=== PATIENT | female | born 1970 | race Caucasian/White ===

== ENCOUNTER 2017-06-22 10:46 | Emergency (ER) | payer MEDICARE, OTHER ==
[~2017-06-22] VITALS: Ht 172.7 cm; Wt 68.0 kg
--- NOTE | 2017-06-22 11:26 | PHYS DOC ---
Past Medical History Past Medical History: Hypotension, Pneumonia, Other Additional Past Medical Histor: SERGIO'S DISEASE,QUADRAPLEGIA Past Surgical History: Other Additional Past Surgical Histo: NECK FUSION, MULTIPLE FLAP SURGERIES Alcohol Use: None Drug Use: Marijuana Adult General Chief Complaint Chief Complaint: OTHER COMPLAINTS HPI HPI Impression is a pleasant 47-year-old female who is a quadriplegic who at had a central line placed by interventional radiology in the early portions of April. Patient had this Port-A-Cath placed for IV therapy after surgery. She's been doing well was at a rehabilitation subsequently from last month and discharged on 13 June. It was noted at their transfer her from the [facility] to her home that the Port-A-Cath was still in place. This Port-A-Cath has been in placed supply IV antibiotics for a wound that was revisited revised by general surgery on her thigh. Patient has had no fever no chills or other symptoms and she called the general surgeon who told her to go to the hospital have the Port- A-Cath removed. She is been in our rehabilitation facility and was referred here to our ER for this Port-A-Cath removed. It was explained to the patient that we do not do the service here in the ER as its accommodated process to remove a Port-A-Cath appropriate workup for possible bacterial Examination an appropriate disposition. She is willing to be admitted to the hospital for this purpose. Review of Systems Review of Systems Constitutional: Denies fever or chills [] Eyes: Denies change in visual acuity, redness, or eye pain [] HENT: Denies nasal congestion or sore throat [] Respiratory: Denies cough or shortness of breath [] Cardiovascular: No additional information not addressed in HPI [] GI: Denies abdominal pain, nausea, vomiting, bloody stools or diarrhea [] : Denies dysuria or hematuria [] Musculoskeletal: Denies back pain or joint pain [] Integument: Denies rash or skin lesions [] Neurologic: Denies headache, focal weakness or sensory changes [] Endocrine: Denies polyuria or polydipsia [] Allergies Allergies Allergies Coded Allergies Type Severity Reaction Last Updated Verified Sulfa (Sulfonamide Antibiotics) Allergy Unknown 06/22/17 Yes ceftriaxone Allergy Unknown 06/22/17 Yes cephalexin Allergy Unknown 06/22/17 Yes piperacillin Allergy Unknown 06/22/17 Yes tazobactam Allergy Unknown 06/22/17 Yes vancomycin Allergy Unknown 06/22/17 Yes Physical Exam Physical Exam This patient's vital Signs are stable for patient. Constitutional: Well developed, well nourished, no acute distress, non-toxic appearance. [] Cardiovascular:Heart rate regular rhythm, no murmur [] Lungs & Thorax: Bilateral breath sounds clear to auscultation [] Skin: Warm, dry, no erythema, no rash. [] Has no redness or tenderness over the Port-A-Cath in the left chest wall. Psychologic: Affect normal, judgement normal, mood normal. [] Current Patient Data Vital Signs Vital Signs Date Time Temp Pulse Resp B/P (MAP) Pulse Ox O2 Delivery O2 Flow Rate FiO2 06/22/17 11:28 68 16 91/59 (70) 93 Room Air 06/22/17 10:48 98.1 98.1 EKG EKG [] Radiology/Procedures Radiology/Procedures [] Course & Med Decision Making Course & Med Decision Making Pertinent Labs and Imaging studies reviewed. (See chart for details) she arrived to the ER today with the intent of having us remove a Port-A-Cath from her chest wall. I told the patient we do not feel couple during this here in the emergency department as it requires more than just a simple line removal. She's been agreeable to admission to the hospital for appropriate removal of this Port-A-Cath. Desktop Specialist note: 10:27 called IM for admission Desktop Specialist called at of the service IM service called again at 11:00 and 11:25 over head Consult called back at 11:36 Discussed the case I presented and they agreed with admission. She asked that I call and talk to interventional radiology before admitting this patient to the hospital to see the revealed the remove this Port-A-Cath in a timely manner. Interventional radiology page at approximately 11:40 AM. Desktop Specialist note: interventional radiology Desktop Specialist called at of the service services page was 11:50 am Consult called back at 12:10 pm Discussed the case I presented and they agreed with disposition to the office as an outpatient to remove this PowerPort on her chest wall which is very stable sometime early this week. There is no reason to emergently remove it. She will follow-up with Dr. marinelli below I will give her the information for the follow-up clinic. Sorin Murphy[] [employer] [facility] [employer] [facility] [address] [place] [address] [address] [place], [place] [id number] Dragon Disclaimer Dragon Disclaimer This electronic medical record was generated, in whole or in part, using a voice recognition dictation system. Departure Departure Impression: Primary Impression: Central line complication Disposition: HOME, SELF-CARE Admitting Physician: Nisreen Dowell Condition: STABLE Referrals: SORIN SHEARER MD Patient Instructions: Central Lines Additional Instructions: Sorin Murphy[] [employer] [facility] [address] [place] [address] Return for any new or increasing symptoms like redness or swelling around the site. Return if you have any questions or concerns or shortness of breath. Please call the interventional radiology group as above on Saturday morning to schedule point early this week to have this central line removed at her discretion. MINDY PINO MD Jun 22, 2017 11:26
[2017-06-22 13:44] VITALS: BP 112/72
== END 2017-06-22 14:15 | disposition home or self-care (01) ==
LOC: ER 10:46
DX: T82.898A Other specified complication of vascular prosthetic devices, implants and grafts, initial encounter (principal); I95.9 Hypotension, unspecified; G82.50 Quadriplegia, unspecified; F12.10 Cannabis abuse, uncomplicated; Z88.8 Allergy status to other drugs, medicaments and biological substances; Z88.1 Allergy status to other antibiotic agents; Z88.2 Allergy status to sulfonamides; Z98.1 Arthrodesis status; Y83.8 Other surgical procedures as the cause of abnormal reaction of the patient, or of later complication, without mention of misadventure at the time of the procedure; Y92.89 Other specified places as the place of occurrence of the external cause
CPT/HCPCS: 99284